=== PATIENT | male | born 1995 | race African-American/Black ===

== ENCOUNTER 2020-10-27 22:44 | Emergency (ER) | payer OTHER ==
[~2020-10-27] VITALS: Ht 188 cm; Wt 88.7 kg
[2020-10-27] MEDS ORDERED: OXYC1TAB23 PO (22:58)
[2020-10-27] MEDS ORDERED: ZOFR4TAB16 PO (22:58)
[2020-10-27] MEDS ORDERED: IBUP80TA PO (22:58)
[2020-10-27] MEDS ORDERED: [UNRECOGNIZED DRUG - OTHER] PO (22:58)
[2020-10-28 01:01] VITALS: BP 122/82
== END 2020-10-28 01:03 | disposition home or self-care (01) ==
LOC: M ED 22:44
DX: J02.9 Acute pharyngitis, unspecified (principal); K08.409 Partial loss of teeth, unspecified cause, unspecified class; Z98.890 Other specified postprocedural states; Z79.899 Other long term (current) drug therapy

== ENCOUNTER 2020-12-18 18:02 | Emergency (ER) | payer OTHER ==
[~2020-12-18] VITALS: Ht 188 cm; Wt 94.2 kg
[~2020-12-18 18:02] MED LIST: IBUP80TA PO; OXYC1TAB23 PO; ZOFR4TAB16 PO; [UNRECOGNIZED DRUG - OTHER] PO
[2020-12-18] MEDS ORDERED: ACETAMINOPHEN 500 MG TAB PO ONE (18:30)
--- NOTE | 2020-12-18 18:36 | REPVR ---
PROCEDURE INFORMATION: Exam: CT Head Without Contrast Exam date and time: 12/18/2020 6:16 PM Age: 25 years old Clinical indication: Syncope and collapse TECHNIQUE: Imaging protocol: Computed tomography of the head without contrast. Radiation optimization: All CT scans at this facility use at least one of these dose optimization techniques: automated exposure control; mA and/or kV adjustment per patient size (includes targeted exams where dose is matched to clinical indication); or iterative reconstruction. COMPARISON: No relevant prior studies available. FINDINGS: Brain: Normal. No hemorrhage. Unremarkable white matter. No mass effect. Cerebral ventricles: No ventriculomegaly. Bones/joints: Unremarkable. No acute fracture. Paranasal sinuses: Visualized sinuses are unremarkable. No fluid levels. Mastoid air cells: Visualized mastoid air cells are well aerated. Soft tissues: Unremarkable. IMPRESSION: No acute intracranial abnormality. Electronically signed by: Schuyler Gaspar On 12/18/2020 18:36:28 PM
[2020-12-18 18:50] LABS: HEMATOCRIT 39.9 % (42.0-52.0); HEMOGLOBIN 13.5 g/dl (13.5-17.5); MEAN CORPUSCULAR HEMOGLOBIN 27.6 pg (27.0-33.0); MEAN CORPUSCULAR HGB CONC 33.8 g/dl (32.0-36.5); MEAN CORPUSCULAR VOLUME 81.6 fl (80.0-96.0); PLATELET COUNT, AUTOMATED 311 10^3/uL (150-450); RED BLOOD COUNT 4.89 10^6/uL (4.30-6.10); WHITE BLOOD COUNT 4.7 10^3/uL (4.0-10.0)
[2020-12-18] MEDS ORDERED: NS 1,000 ML IV ONE (19:00)
--- NOTE | 2020-12-18 20:08 | REPVR ---
PROCEDURE INFORMATION: Exam: XR Left Knee Exam date and time: 12/18/2020 6:58 PM Age: 25 years old Clinical indication: Pain; Knee; Left; Additional info: Karen TECHNIQUE: Imaging protocol: XR Left knee. Views: 4 or more views. COMPARISON: No relevant prior studies available. FINDINGS: Bones/joints: Diffuse demineralization of the bones. No acute fracture. Soft tissues: Normal. IMPRESSION: No acute fracture. Electronically signed by: Schuyler Gaspar On 12/18/2020 20:08:08 PM
[2020-12-18 21:15] VITALS: BP 126/72
--- NOTE | 2020-12-19 14:44 | ECGEPIP ---
[facility] - ED Test Date: 2020-12-18 Pat Name: MARCELLA CALLAWAY Department: Room: - Gender: Male [employer] Beverage Service Manager: lr : 1995 Requested By: Kath Zeng Order Number: [id number] Reading MD: Kath Zeng Measurements Intervals [place] Rate: 59 P: 55 MO: 151 QRS: 57 QRSD: 87 T: 19 QT: 388 QTc: 386 Interpretive Statements SINUS BRADYCARDIA WITH SINUS ARRHYTHMIA No prior Electronically Signed on 12-19-2020 14:44:00 EST by Kath Zeng
== END 2020-12-18 21:24 | disposition home or self-care (01) ==
LOC: M ED 18:02
DX: R55 Syncope and collapse (principal)

== ENCOUNTER 2021-01-17 13:15 | Emergency (ER) | payer OTHER ==
[~2021-01-17] VITALS: Ht 188 cm; Wt 93.4 kg
--- OUTSIDE RECORDS SUMMARY | 2021-01-17 13:25 | CCD ---
Author Author [facility] Organization [facility] Address Unknown Phone Unavailable Support Name Relationship Address Phone [facility] Next Of Kin [address] [place] [address] Unavailable ROMY BRICEÑO Next Of Kin [address] [place] [address] Re-disclosure Warning The records that you are about to access may contain information from federally-assisted alcohol or drug abuse programs. If such information is present, then the following federally mandated warning applies: This information has been disclosed to you from records protected by federal confidentiality rules (42 CFR part 2). The federal rules prohibit you from making any further disclosure of this information unless further disclosure is expressly permitted by the written consent of the person to whom it pertains or as otherwise permitted by 42 CFR part 2. A general authorization for the release of medical or other information is NOT sufficient for this purpose. The Federal rules restrict any use of the information to criminally investigate or prosecute any alcohol or drug abuse patient.The records that you are about to access may contain highly sensitive health information, the redisclosure of which is protected by Article 27-F of the [facility] Public Health law. If you continue you may have access to information: Regarding HIV / AIDS; Provided by facilities licensed or operated by the [facility] Office of Mental Health; or Provided by the [facility] Office for People With Developmental Disabilities. If such information is present, then the following [facility] mandated warning applies: This information has been disclosed to you from confidential records which are protected by state law. State law prohibits you from making any further disclosure of this information without the specific written consent of the person to whom it pertains, or as otherwise permitted by law. Any unauthorized further disclosure in violation of state law may result in a fine or skilled nursing sentence or both. A general authorization for the release of medical or other information is NOT sufficient authorization for further disc losure. Insurance Providers Payer name Policy type / Coverage type Policy ID Covered democrat ID Covered democrat's relationship to vargas Policy Varg[employer] Plan Information [facility] ACTIVE D[employer] [id number]
--- NOTE | 2021-01-17 13:59 | REP ---
INDICATION: pain. COMPARISON: None. TECHNIQUE: Four views of the right ankle are provided. FINDINGS: Four views of the right ankle demonstrate an intact ankle mortise. No fracture or subluxation is seen. Bones, joints and soft tissues are unremarkable. IMPRESSION: Negative right ankle radiographs. <Electronically signed by Jeffrey Devlin > 01/17/21 [id number]
--- OUTSIDE RECORDS SUMMARY | 2021-01-17 13:59 | CCD ---
Author Author [facility] Organization [facility] Address Unknown Phone Unavailable Support Name Relationship Address Phone [facility] Next Of Kin [address] [place] [address] Unavailable ROMY BRICEÑO Next Of Kin [address] [place] [address] Re-disclosure Warning The records that you are [...] is protected by Article 27-F of the [facility] Public Health law. If you continue you may have access to information: Regarding HIV / AIDS; Provided by facilities licensed or operated by the [facility] Office of Mental Health; or Provided by the [facility] Office for People With Developmental Disabilities. If such information is present, then the following [facility] mandated warning applies: This information has [...] law may result in a fine or detention sentence or both. A general authorization for the release of medical or other information is NOT sufficient authorization for further disc losure. Insurance Providers Payer name Policy type / Coverage type Policy ID Covered democrat ID Covered democrat's relationship to vargas Policy [employer] Plan Information [facility] ACTIVE [employer] [id number]
[2021-01-17] MEDS ORDERED: NAPR-885 PO (14:37)
[2021-01-17 14:44] VITALS: BP 124/73
== END 2021-01-17 14:59 | disposition home or self-care (01) ==
LOC: M ED 13:15
DX: S93.401A Sprain of unspecified ligament of right ankle, initial encounter (principal); X50.9XXA Other and unspecified overexertion or strenuous movements or postures, initial encounter; Y92.89 Other specified places as the place of occurrence of the external cause; Y99.0 Civilian activity done for income or pay; F90.9 Attention-deficit hyperactivity disorder, unspecified type

== ENCOUNTER 2021-06-26 18:55 | Emergency (ER) | payer OTHER ==
[~2021-06-26] VITALS: Ht 188 cm; Wt 89.0 kg
[~2021-06-26 18:55] MED LIST changes: +NAPR-885 PO
[2021-06-26 23:04] VITALS: BP 130/90
== END 2021-06-27 04:00 | disposition left against medical advice (07) ==
LOC: M ED 18:55
DX: Z53.21 Procedure and treatment not carried out due to patient leaving prior to being seen by health care provider (principal)